=== PATIENT | male | born 1950 | race Caucasian/White ===

== ENCOUNTER → 2019-02-13 | Outpatient (REF) | payer MEDICARE | LOC: M SMT 16:52 | PROVIDERS: ATTEND Nurse Practitioner Family | DX: R97.20 Elevated prostate specific antigen [PSA] (principal) ==

== ENCOUNTER → 2019-05-14 | Outpatient (REF) | payer MEDICARE, BC | LOC: M SMT 17:07 | PROVIDERS: ATTEND Nurse Practitioner Family | DX: N39.0 Urinary tract infection, site not specified (principal) | CPT/HCPCS: 51798; 87086; G0463 ==